=== PATIENT | male | born 1980 | race Hispanic/Latino ===

== ENCOUNTER 2019-10-22 06:46 | Day surgery (SDC) | payer MEDICAID ==
[~2019-10-22] VITALS: Ht 172.7 cm; Wt 140.6 kg
[~2019-10-22 06:46] MED LIST: SODIUM CHLORIDE 0.9% 1000ML 1,000 ML IV ONE
[2019-10-22 07:59] VITALS: BP 109/68
[2019-10-22] MEDS ORDERED: INSU100I3 SQ ×2 (08:21)
[2019-10-22] MEDS ORDERED: INSU3INS3 SQ (08:21)
[2019-10-22] MEDS ORDERED: METO25TA6 PO (08:21)
[2019-10-22] MEDS ORDERED: LOSA1TAB42 PO (08:21)
[2019-10-22] MEDS ORDERED: ASPI-555 PO (08:21)
[2019-10-22] MEDS ORDERED: ROSU10TA28 PO (08:21)
[2019-10-22] MEDS ORDERED: AMLO10TA7 PO (08:21)
[2019-10-22] MEDS ORDERED: PROPOFOL 10 MG/ML 20ML VIAL IV ONE (08:36)
[2019-10-22 08:50] VITALS: BP_SYST 110; BP_SYST 96; BP_DIAS 62; BP_DIAS 68
[2019-10-22 08:55] VITALS: BP 127/77
[2019-10-22 09:01] VITALS: BP 110/80
[2019-10-22 09:15] VITALS: BP 120/76
== END 2019-10-22 09:22 | disposition home or self-care (01) ==
LOC: DAH 06:46 → ENDO 06:46
PROVIDERS: ATTEND Internal Medicine
DX: R13.10 Dysphagia, unspecified (principal); K21.0 Gastro-esophageal reflux disease with esophagitis; K31.89 Other diseases of stomach and duodenum; E78.5 Hyperlipidemia, unspecified; K21.9 Gastro-esophageal reflux disease without esophagitis; E11.9 Type 2 diabetes mellitus without complications
CPT/HCPCS: 43239; 82948 ×2; A4215; A4221; A4222; A4223; A4606; A4620; A4663; J2704; J7030

== ENCOUNTER → 2020-03-05 | Outpatient (CLI) | payer OTHER ==
[~2020-03-05] MED LIST changes: +AMLO10TA7 PO; +ASPI-555 PO; +INSU100I3 SQ; +INSU3INS3 SQ; +LOSA1TAB42 PO; +METO25TA6 PO; +ROSU10TA28 PO; -SODIUM CHLORIDE 0.9% 1000ML 1,000 ML IV ONE
== END | disposition home or self-care (01) ==
LOC: RAH 08:53
PROVIDERS: ATTEND Internal Medicine Cardiovascular Disease
DX: Z13.6 Encounter for screening for cardiovascular disorders (principal)
CPT/HCPCS: 75571